=== PATIENT | male | born 1990 | race Two or more races ===

== ENCOUNTER 2020-04-13 09:13 | Emergency (ER) | payer MEDICAID ==
[~2020-04-13] VITALS: Ht 175.3 cm; Wt 131.5 kg
[~2020-04-13 09:13] MED LIST: IBUPROFEN600 MG ORAL; PROMETHAZINE-C118 M1 ORAL
[2020-04-13] MEDS ORDERED: LANTUS SOL100 UNIT/1 SUBQ (09:21)
[2020-04-13] MEDS ORDERED: METFORMIN500 MG/5 M PO (09:21)
[2020-04-13 09:28] VITALS: BP 137/89
[2020-04-13] MEDS ORDERED: Ketorolac 30mg Inj IM ONE (09:45)
--- NOTE | 2020-04-13 10:27 | Diagnostic Imaging Report ---
Indication: Cough Technique: One view of the chest Comparison: none Findings: Lungs and pleural spaces are clear. Heart size is normal. Impression: No acute process
[2020-04-13] MEDS ORDERED: IBUPROFEN600 M1 ORAL (10:42)
[2020-04-13] MEDS ORDERED: ROBAXIN-750750 MG PO (10:42)
[2020-04-13 10:46] VITALS: BP 137/89
--- NOTE | 2020-04-13 10:53 | Emergency Room Report ---
History of Present Illness General Chief Complaint: Pain Source: Patient Present Illness HPI 29-year-old male presents to ED evaluation. Complaining of "lung pain". Notes pain in his chest and in his back. Has had this pain on and off for 3 months. Dull, 7 out of 10, nonradiating. Denies fevers or chills. Denies cough. States pain is worse with positional changes. Denies any fall or injury. No other aggravating relieving factors. Denies any other associated symptoms Allergies: Coded Allergies: No Known Allergies (Unverified , 04/13/20) COVID-19 Screening Contact w/high risk pt: No Experienced COVID-19 symptoms?: No COVID-19 Testing performed IT SUPPORT ANALYST: No Patient History Past Medical History: DM, HTN Past Surgical History: none Pertinent Family History: none Social History: Denies: smoking, alcohol use, drug use Immunizations: UTD Reviewed Nursing Documentation: PMH: Agreed; PSxH: Agreed Nursing Documentation-PMH Hx Hypertension: Yes Hx Diabetes: Yes Review of Systems All Other Systems: negative except mentioned in HPI Physical Exam Vital Signs Date Time Temp Pulse Resp B/P (MAP) Pulse Ox O2 Delivery O2 Flow Rate FiO2 04/13/20 09:17 97.9 87 18 137/89 (105) 96 Sp02 EP Interpretation: reviewed, normal General Appearance: alert, GCS 15, non-toxic, obese Head: normocephalic, atraumatic Eyes: bilateral eye normal inspection, bilateral eye PERRL ENT: hearing grossly normal, normal pharynx, no angioedema, normal voice Neck: full range of motion, supple/symm/no masses Respiratory: lungs clear, normal breath sounds, speaking full sentences, other - reproducible anterior and posterior rib pain Cardiovascular #1: regular rate, rhythm, no edema Cardiovascular #2: 2+ carotid (R), 2+ carotid (L), 2+ radial (R), 2+ radial (L) , 2+ dorsalis pedis (R), 2+ dorsalis pedis (L) Gastrointestinal: normal bowel sounds, non tender, soft, non-distended, no guarding, no rebound Rectal: deferred Genitourinary: normal inspection, no CVA tenderness Musculoskeletal: back normal, normal range of motion, gait/station normal, non- tender Neurologic: alert, motor strength/tone normal, oriented x3, sensory intact, responsive, speech normal Psychiatric: judgement/insight normal, memory normal, mood/affect normal, no suicidal/homicidal ideation Reflexes: 3+ bicep (R), 3+ bicep (L), 3+ tricep (R), 3+ tricep (L), 3+ knee (R) , 3+ knee (L) Lymphatic: no adenopathy Medical Decision Making Diagnostic Impression: Primary Impression: Chest wall pain ER Course Hospital Course 29-year-old male presents ED complaining of reproducible chest wall pain Differential diagnoses include: Rib fracture, WI/unstable angina, contusion, muscle strain Clinical course Patient placed on stretcher. After initial history exam reveals male in no acute distress. Obese. There is reproducible pain to his upper back and to his anterior chest wall. Lungs clear. Chest x-ray no acute process. I discussed findings with patient. Vitals stable. Likely muscular. Will discharge home with medications. Given Toradol here with pain improved. Safe for discharge for close outpatient follow-up. I will provide referrals I. I feel this is a highly complex case requiring extensive working including EKG/Rhythm strip, Xray/CT/US, Blood/urine lab work, repeat exams while in ED, and administration of strong opiates/narcotics for pain control, admission to hospital or close patient follow up. Diagnosis - chest wall pain Stable and discharged to home with prescription for Motrin, Robaxin. Instructed to followup with PMD. Return to ED if symptoms recur or worsen Chest X-Ray Diagnostic Results Chest X-Ray Diagnostic Results : Chest X-Ray Ordered: Yes # of Views/Limited/Complete: 1 View Indication: Chest Pain EP Interpretation: Yes Interpretation: no consolidation, no effusion, no pneumothorax, no acute cardiopulmonary disease Impression: No acute disease Electronically Signed by: Electronically signed by Tripp Sands MD Last Vital Signs Date Time Temp Pulse Resp B/P (MAP) Pulse Ox O2 Delivery O2 Flow Rate FiO2 04/13/20 10:46 97.9 18 137/89 96 04/13/20 09:17 87 Status: improved Disposition: HOME, SELF-CARE Condition: Stable Scripts Methocarbamol* (ROBAXIN-750*) 750 Mg Tablet 750 MG PO TID, #21 TAB 0 Refills Prov: Tripp Sands MD 04/13/20 Ibuprofen* (MOTRIN*) 600 Mg Tablet 600 MG ORAL Q8H PRN for FOR PAIN, #30 TAB 0 Refills Prov: Tripp Sands MD 04/13/20 Referrals: Kai Fields. [facility] Patient Instructions: Chest Wall Pain, [id number] Tripp Sands MD Apr 13, 2020 10:53
== END 2020-04-13 10:47 | disposition home or self-care (01) ==
LOC: EMR 09:25
DX: R07.89 Other chest pain (principal); E11.9 Type 2 diabetes mellitus without complications; I10 Essential (primary) hypertension; E66.9 Obesity, unspecified; Z68.41 Body mass index [BMI] 40.0-44.9, adult
CPT/HCPCS: 71045; 96372; J1885; Z7502; 99283